=== PATIENT | male | born 1960 | race Caucasian/White ===

== ENCOUNTER 2020-02-27 17:47 | Inpatient (IN) | payer MEDICAID ==
[~2020-02-27] VITALS: Ht 180.3 cm; Wt 92.5 kg
--- NOTE | 2020-02-27 17:57 | NUR ---
MICHELLE FROM [facility] TO ER BED 5. AAOX4. BREATHING EVEN AND UNLABORED. BROUGHT IN FOR MID STERNAL CHEST PAIN X 1 HR EXTERMINATOR HELPER NON RADIATING CONSTANT 4/10 SHARP IN NATURE. PT ALSO REPORTS THAT HE IS HAVING DIFFICULTY BREATHING BUT HE IS TALKING IN FULL SENTENCES. PT IS ON MONITOR. EKG BEING DONE AT BEDSIDE. WAS AT THE BEDSIDE FOR EVAL.
[2020-02-27] MEDS ORDERED: NITROGLYCERIN 0.4 MG/TAB BOTTLE SL ONE (18:00)
[2020-02-27] MEDS ORDERED: ASPIRIN 325 MG TABLET PO ONE (18:00)
--- NOTE | 2020-02-27 18:01 | NUR ---
PER EMS REPORT. PT WAS GIVEN X 3 SPRAYS OF NITRO AND ASA 325MG PO X 1. PT HAD PAIN OF 6/10 AND NOW 4/10
--- NOTE | 2020-02-27 18:02 | NUR ---
ORDERED TO HOLD ON THE ASA AND NITRO. PT ALREADY RECEIVED THEM ENROUTE TO ER
[2020-02-27] MEDS ORDERED: IV NS 0.9% 1,000 ML IV ONE (18:30)
[2020-02-27] MEDS ORDERED: SERT50TA12 PO (19:03)
[2020-02-27] MEDS ORDERED: DOLU1TAB PO (19:03)
[2020-02-27] MEDS ORDERED: TOPI25TA49 PO (19:03)
[2020-02-27] MEDS ORDERED: ASPI-1169 PO (19:03)
[2020-02-27] MEDS ORDERED: LOSA25TA27 PO (19:03)
[2020-02-27] MEDS ORDERED: CLOP75TA15 PO (19:03)
[2020-02-27] MEDS ORDERED: ISOS10TA8 PO (19:03)
[2020-02-27] MEDS ORDERED: MIRT-73 PO (19:03)
[2020-02-27] MEDS ORDERED: ATOR20TA PO (19:03)
[2020-02-27] MEDS ORDERED: METO25TA20 PO (19:03)
[2020-02-27] MEDS ORDERED: LEVE500T20 PO (19:03)
[2020-02-27] MEDS ORDERED: QUET300T2 PO (19:03)
--- NOTE | 2020-02-27 19:20 | NUR ---
COVID SWAB COLLECTED, SENT TO LAB. (SEND OUT)
--- NOTE | 2020-02-27 19:36 | NUR ---
RACHELID SWABBED, SENT TO LAB.
[2020-02-27 19:44] LABS: CALCIUM, SERUM 8.6 mg/dL (8.5-10.1); CARBON DIOXIDE 22 mmol/L (21-32); CHLORIDE 103 mmol/L (98-107); CREATININE 0.8 mg/dL (0.6-1.3); GLUCOSE 157 mg/dL (74-106); SODIUM SERUM 140 mmol/L (136-145); UREA NITROGEN, BLOOD 13 mg/dL (7-18)
[2020-02-27 19:55] LABS: POTASSIUM 2.8 mmol/L (3.5-5.1)
--- NOTE | 2020-02-27 19:56 | NUR ---
REPORT GIVEN TO TAPAN WALDEN FOR MARIO.
[2020-02-27] MEDS ORDERED: POTASSIUM CHLORIDE 20 MEQ TAB.PRT.SR PO ONE ×2 (20:00→20:09)
--- NOTE | 2020-02-27 20:02 | NUR ---
[facility] CALLED HIGH SCHOOL TEACHER PAGED.
[2020-02-27 20:27] LABS: BASOPHILS % (AUTO) 0.5 % (0.0-2.0); EOSINOPHILS % (AUTO) 1.6 % (0.0-6.0); HEMATOCRIT 45 % (39-51); HEMOGLOBIN 14.5 g/dL (13.5-17.5); LYMPHOCYTES # (AUTO) 1.9 /CMM (0.8-4.8); LYMPHOCYTES % (AUTO) 30.9 % (20.0-44.0); MEAN CORPUSCULAR HGB CONC 33 g/dl (31.0-36.0); MEAN CORPUSCULAR VOLUME 94 fL (80-96); MONOCYTES # (AUTO) 0.4 /CMM (0.1-1.30); MONOCYTES % (AUTO) 6.6 % (2.0-12.0); NEUTROPHILS # (AUTO) 3.7 /CMM (1.8-8.9); NEUTROPHILS % (AUTO) 60.4 % (43.0-81.0); PLATELET COUNT (AUTO) 200 /CMM (150-450); RED BLOOD CELL COUNT(AUTO) 4.74 MIL/uL (4.5-6.0); WHITE BLOOD COUNT (AUTO) 6.1 K/uL (4.3-11.0)
[2020-02-27 20:35] VITALS: BP 122/73
--- NOTE | 2020-02-27 20:35 | NUR ---
trial attorneyfurnace converter note Received patient via gurney. Patient ambulated to bed. a/ox4. Tolerating room air. Respirations are even and unlabored. No s/s sob noted. States he has chest pain 4/10 butter than ER, but is tolerable. External tele monitor reads sinus rhythm hr 86. In no apparent distress. Iv access in left hand #20 patent and saline locked. Initial physical assessment completed, skin assessment completed, photos taken and placed in chart. Can obtained vitals signs and belongings list. Bed is low and locked, hob elevated in semi fowlers, side rails up x2. Call light within reach. Will continue to monitor.
--- NOTE | 2020-02-27 20:42 | NUR ---
PT TO UNIT ON [facility] WITH EMT AND RN AT BEDSIDE W/ ACLS PROTOCOL. NAD NOTED DURING TRANSPORT. PT AMBULATED FROM GURNEY TO BED ON STEADY GAIT W/ ASSIST
[2020-02-27] MEDS ORDERED: ACETAMINOPHEN 325 MG TABLET PO PRN (21:30)
[2020-02-27] MEDS ORDERED: ONDANSETRON HCL/PF 4 MG/2 ML VIAL IVP PRN (21:30)
[2020-02-27] MEDS ORDERED: HYDROCODONE/APAP 5/325MG TABLET PO PRN (21:30)
[2020-02-27] MEDS ORDERED: MORPHINE SULFATE INJ 2 MG/ML DISP.SYRIN IV PRN (21:30)
[2020-02-27] MEDS: ATORVASTATIN 10 MG TABLET PO SCH (21:56)
[2020-02-27] MEDS: CLOPIDOGREL BISULFATE 75 MG TABLET PO SCH (21:57)
[2020-02-27] MEDS: MIRTAZAPINE SOLUTAB 15 MG/UDTABLET TAB.RAPDIS PO SCH (21:57)
[2020-02-27 22:11] LABS: ALBUMIN 3.2 g/dL (3.4-5.0); BILIRUBIN,DIRECT 0.1 mg/dL (0.0-0.2); BILIRUBIN,TOTAL 0.4 mg/dL (0.2-1.0); MAGNESIUM 1.9 mg/dL (1.8-2.4)
[2020-02-27] MEDS: QUETIAPINE FUMARATE 100 MG TABLET PO SCH (23:31)
[2020-02-28] VITALS: BP 127/78
[2020-02-28 04:00] VITALS: BP 124/73
[2020-02-28 06:43] LABS: ALBUMIN 3.1 g/dL (3.4-5.0); BILIRUBIN,TOTAL 0.7 mg/dL (0.2-1.0); CALCIUM, SERUM 8.4 mg/dL (8.5-10.1); CREATININE 0.7 mg/dL (0.6-1.3); MAGNESIUM 1.9 mg/dL (1.8-2.4); PHOSPHORUS 3.8 mg/dL (2.5-4.9); POTASSIUM 3.4 mmol/L (3.5-5.1); TOTAL PROTEIN, SERUM 5.9 g/dL (6.4-8.2)
[2020-02-28 06:56] LABS: BASOPHILS # (AUTO) 0.1 /CMM (0.0-0.2); BASOPHILS % (AUTO) 1.2 % (0.0-2.0); EOSINOPHILS % (AUTO) 4.3 % (0.0-6.0); HEMATOCRIT 44 % (39-51); HEMOGLOBIN 14.4 g/dL (13.5-17.5); LYMPHOCYTES # (AUTO) 2.4 /CMM (0.8-4.8); LYMPHOCYTES % (AUTO) 45.8 % (20.0-44.0); MEAN CORPUSCULAR HGB CONC 33 g/dl (31.0-36.0); MEAN CORPUSCULAR VOLUME 94 fL (80-96); MONOCYTES # (AUTO) 0.5 /CMM (0.1-1.30); NEUTROPHILS # (AUTO) 2.1 /CMM (1.8-8.9); NEUTROPHILS % (AUTO) 39.7 % (43.0-81.0); PLATELET COUNT (AUTO) 180 /CMM (150-450); WHITE BLOOD COUNT (AUTO) 5.2 K/uL (4.3-11.0)
[2020-02-28 06:58] LABS: THYROID STIMULATING HORMONE 0.457 uIU/mL (0.358-3.74)
--- NOTE | 2020-02-28 07:03 | NUR ---
TRIM TECHNICIAN OPENING NOTES RECEIVED PT AWAKE IN BED AT THIS TIME. AOX4. NO SOB NOTED, NO S/S OF ANY ACUTE DISTRESS NOTED. NO C/O PAIN AT THIS TIME.PT ABLE TO MAKE NEEDS KNOWN. PT ON EXTERNAL TELE APPLICATION SYSTEMS ENGINEER READING SR IN THE 90S RESPIRATIONS ARE EVEN AND UNLABORED WITH EQUAL RISE AND FALL IN CHEST. IV ACCESS NOTED IN LEFT HAND G#20, INTACT, PATENT AND FLUSHING WELL. SAFETY PRECAUTION IN PLACE AND MAINTAINED AT ALL TIMES. BED IN LOWEST LOCKED POSITION, HOB ELEVATED, SIDE RAILS UP X 2, CALL LIGHT WITHIN REACH. WILL CONTINUE TO MONITOR
--- NOTE | 2020-02-28 07:10 | NUR ---
lucerne farmer closing note patient resting in bed. a/ox4. Tolerating room air. no resp distress. no c/o pain. External tele monitor reads sinus rhythm. no distress. Iv access maintained in left hand #20 patent and saline locked. Bed remains low and locked, hob elevated in semi fowlers, side rails up x2. Call light within reach. Will endorse to next shift.
[2020-02-28] MEDS: PANTOPRAZOLE 40 MG TABLET.DR PO SCH (08:18)
[2020-02-28] MEDS: ASPIRIN 81 MG TAB.CHEW PO SCH (08:52)
[2020-02-28] MEDS: LEVETIRACETAM (250 MG) 250 MG TABLET PO SCH ×2 (08:52→22:51)
[2020-02-28] MEDS: TOPIRAMATE 25 MG TABLET PO SCH (08:52)
[2020-02-28] MEDS: SERTRALINE HCL 50 MG TABLET PO SCH (08:52)
[2020-02-28] MEDS: LOSARTAN POTASSIUM 25 MG TABLET PO SCH (08:52)
[2020-02-28] MEDS: ISOSORBIDE MONONITRATE 20 MG TABLET PO SCH ×2 (08:53→16:33)
[2020-02-28] MEDS ORDERED: FUROSEMIDE 20 MG/2 ML VIAL IV SCH (09:00)
[2020-02-28] MEDS ORDERED: METOPROLOL TARTRATE 25 MG TABLET PO SCH ×2 (09:00)
[2020-02-28] MEDS ORDERED: POTASSIUM CHLORIDE 20 MEQ TAB.PRT.SR PO ONE (09:30)
[2020-02-28] MEDS ORDERED: METOPROLOL TARTRATE 25 MG TABLET PO ONE (09:30)
[2020-02-28 10:00] VITALS: BP 121/81
[2020-02-28 10:47] LABS: FERRITIN 24 ng/mL (8-388)
[2020-02-28 10:55] LABS: C-REACTIVE PROTEIN < 0.2 mg/dL (0.0-0.9)
--- NOTE | 2020-02-28 16:00 | NUR ---
PT PCR CAME BACK NEGATIVE. DOCTOR GOLDIE MADE AWARE. ORDERS RECEIVED TO TRANSFER PT TO [facility]. ORDERS CARRIED OUT. WILL CONTINUE TO WITH PLAN OF CARE
--- NOTE | 2020-02-28 17:10 | NUR ---
PT TRANSPORTED TO [facility] ROOM 323-2 AT THIS TIME ON A WHEEL CHAIR ACCOMPANIED BY NURSE AND ROSALIE ADAME. BEDSIDE REPORT GIVEN TO TAPAN CONTRERAS.
--- NOTE | 2020-02-28 17:20 | NUR ---
RN NOTES PT TRANSPORTED TO [facility] GAVE REPORT WEST ROOM 323-2 AT THIS TIME ON A WHEEL CHAIR ACCOMPANIED BY NURSE AND ROSALIE ADAME.
--- NOTE | 2020-02-28 19:30 | NUR ---
MS/TELE/RN RECEIVED PATIENT IN BED SLEEPING, APPEAR COMFORTABLE, NO SIGNS OF DISTRESS NOTED, CALL LIGHT IN REACH. WILL MONITOR.
--- NOTE | 2020-02-28 19:49 | NUR ---
RN CLOSING NOTES RECEIVED PT AWAKE IN BED AT THIS TIME. AOX4. NO SOB NOTED, NO S/S OF ANY ACUTE DISTRESS NOTED. NO C/O PAIN AT THIS TIME.PT ABLE TO MAKE NEEDS KNOWN. 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 IV ACCESS NOTED IN LEFT HAND G#20, INTACT, PATENT AND FLUSHING WELL. SAFETY PRECAUTION IN PLACE AND MAINTAINED AT ALL TIMES. BED IN LOWEST LOCKED POSITION, HOB ELEVATED, SIDE RAILS UP X 2, CALL LIGHT WITHIN REACH. WILL ENDORSE TO NIGHT NURSE
[2020-02-28 20:00] VITALS: BP 120/75
[2020-02-28] MEDS: ATORVASTATIN 10 MG TABLET PO SCH (22:51)
[2020-02-28] MEDS: CLOPIDOGREL BISULFATE 75 MG TABLET PO SCH (22:51)
[2020-02-28] MEDS: MIRTAZAPINE SOLUTAB 15 MG/UDTABLET TAB.RAPDIS PO SCH (22:52)
[2020-02-28] MEDS: METOPROLOL TARTRATE 50 MG TABLET PO SCH (22:52)
[2020-02-28] MEDS: QUETIAPINE FUMARATE 100 MG TABLET PO SCH (22:52)
--- NOTE | 2020-02-28 22:58 | NUR ---
MS/TELE/RN PATIENT IS AWAKE, ALERT AND ORIENTED, COMFORTABLE, NO C/O PAIN, NO DISTRESS NOTED. ALL DUE MEDS WERE GIVEN, TOLERATED. WILL CONTINUE TO MONITOR.
[2020-02-29] VITALS (8 sets, daily range): BP systolic 98–127; BP diastolic 53–88
--- NOTE | 2020-02-29 01:51 | NUR ---
MS/TELE/RN PATIENT IS SLEEPING AT THIS TIME, APPEAR COMFORTABLE, NO SIGNS OF DISTRESS NOTED, CALL LIGHT IN REACH. WILL CONTINUE TO MONITOR.
--- NOTE | 2020-02-29 06:14 | NUR ---
MS/TELE/RN PATIENT IS STILL SLEEPING AT THIS TIME, APPEAR COMFORTABLE, NO SIGNS OF DISTRESS NOTED, CALL LIGHT IN REACH, ALL NEEDS ATTENDED AT THIS TIME, WILL CONTINUE TO MONITOR.
[2020-02-29 06:52] LABS: CALCIUM, SERUM 8.6 mg/dL (8.5-10.1); CREATININE 0.6 mg/dL (0.6-1.3); POTASSIUM 3.5 mmol/L (3.5-5.1)
[2020-02-29] MEDS: PANTOPRAZOLE 40 MG TABLET.DR PO SCH (07:36)
--- NOTE | 2020-02-29 07:58 | NUR ---
TELE/RN OPENING NOTES RECEIVED PATIENT IS ON BED SLEEPING BUT EASILY AROUSABLE BY NAME AND LIGHT TOUCH. NO COMPLAINED OF PAIN AT THIS TIME. PATIENT IN NO APPARENT RESPIRATORY DISTRESS NOTED. PATIENT IS ON TELE MONITOR READING SR 62 BPM. WILL CONTINUE TO MONITOR.
[2020-02-29] MEDS: SERTRALINE HCL 50 MG TABLET PO SCH (08:40)
[2020-02-29] MEDS: LOSARTAN POTASSIUM 25 MG TABLET PO SCH (08:40)
[2020-02-29] MEDS: METOPROLOL TARTRATE 50 MG TABLET PO SCH ×2 (08:40→21:00)
[2020-02-29] MEDS: ASPIRIN 81 MG TAB.CHEW PO SCH (08:40)
[2020-02-29] MEDS: TOPIRAMATE 25 MG TABLET PO SCH (08:41)
[2020-02-29] MEDS: LEVETIRACETAM (250 MG) 250 MG TABLET PO SCH ×2 (08:41→21:16)
--- NOTE | 2020-02-29 10:08 | NUR ---
TELE/RN NOTES PATIENT IS AMBULATORY, NO NEED FOR CHEMICAL PROPHYLAXIS PER RACHELL AMEZCUA DNP.
[2020-02-29] MEDS: ISOSORBIDE MONONITRATE 20 MG TABLET PO SCH ×2 (10:24→16:29)
--- NOTE | 2020-02-29 18:45 | NUR ---
TELE/RN CLOSING NOTES PATIENT IS ON BED. AWAKE ALERT AND ORIENTED X4. PATIENT IN NO APPARENT RESPIRATORY DISTRESS NOTED. NO COMPLAINED OF PAIN NOTED. TELE MONITOR IN PLACED READING SR 86 BPM. IV ACCESS AT LEFT HAND # 20G PATENT AND INTACT. SEEN AND EXAMINED BY MD WITH ORDERS MADE AND CARRIED OUT. ALL DUE MEDICATION WAS GIVEN. SAFETY PRECAUTIONS WAS IN PLACED. BED IN LOWEST POSITION AND LOCKED. SIDERAILS UP X 2. CALL LIGHT WITH IN REACH. SITTER IS ON BEDSIDE. WILL ENDORSED TO PHYSICIAN SCIENTIST FOR MARIO.
[2020-02-29] MEDS ORDERED: NITROGLYCERIN 0.4 MG/TAB BOTTLE SL PRN (19:00)
--- NOTE | 2020-02-29 19:20 | NUR ---
INSTRUCTIONAL SUPPORT ASSISTANT OPENING NOTES: RECEIVED PATIENT IN BED, AWAKE, A/O X4. NO S/S OF DISTRESS NOTED. NO COMPLAIN OF PAIN. CALL LIGHT WITHIN REACH. BED IN LOWEST AND LOCKED POSITION.
--- NOTE | 2020-02-29 19:31 | NUR ---
PATIENT WAS PICKED UP BY WHEELCHAIR FOR CT ANGIOGRAM OF THE HEART.
[2020-02-29] MEDS ORDERED: IOHEXOL-350 100 ML VIAL IV ONE (19:46)
[2020-02-29] MEDS ORDERED: METOPROLOL TARTRATE INJ 5 MG/5 ML AMPUL ONE (19:46)
[2020-02-29] MEDS ORDERED: IV NS 0.9% 250 ML IV ONE (19:46)
[2020-02-29] MEDS: METOPROLOL TARTRATE INJ 5 MG/5 ML AMPUL IVP PRN ×2 (19:47→19:52)
--- NOTE | 2020-02-29 20:13 | NUR ---
PATIENT CAME BACK FROM CT ANGIOGRAM BY WHEELCHAIR.
[2020-02-29] MEDS: QUETIAPINE FUMARATE 100 MG TABLET PO SCH (21:15)
[2020-02-29] MEDS: MIRTAZAPINE SOLUTAB 15 MG/UDTABLET TAB.RAPDIS PO SCH (21:16)
[2020-02-29] MEDS: CLOPIDOGREL BISULFATE 75 MG TABLET PO SCH (21:16)
[2020-02-29] MEDS: ATORVASTATIN 10 MG TABLET PO SCH (21:16)
[2020-03-01 03:41] VITALS: BP 125/89
[2020-03-01 03:53] VITALS: BP 98/53
--- NOTE | 2020-03-01 05:37 | NUR ---
FITNESS CENTRE MANAGER CLOSING NOTES: PATIENT IN BED, ASLEEP,EASILY AROUSABLE. NO S/S OF DISTRESS NOTED. CALL LIGHT WITHIN REACH. BED BED IN LOWEST AND LOCKED POSITION. BED ALARM ON. RESTED THROUGHOUT THE NIGHT.LEFT AC G20 INSERTED BY RN AT CT ANGIOGRAM LAST NIGHT, INTACT AND PATENT.
--- NOTE | 2020-03-01 07:15 | NUR ---
PATIENT IN BED, ASLEEP,EASILY AROUSABLE. NO S/S OF DISTRESS NOTED. CALL LIGHT WITHIN REACH. BED BED IN LOWEST AND LOCKED POSITION. BED ALARM ON.LEFT AC G20 INTACT AND PATENT. FLUSHED. ALL HOSPITAL POLICY SAFETY PRECAUTIONS IMPLEMENTED.
[2020-03-01 08:00] VITALS: BP 128/59
[2020-03-01] MEDS: LOSARTAN POTASSIUM 25 MG TABLET PO SCH (09:52)
[2020-03-01 09:53] VITALS: BP 128/74
[2020-03-01] MEDS: ASPIRIN 81 MG TAB.CHEW PO SCH (09:53)
[2020-03-01] MEDS: SERTRALINE HCL 50 MG TABLET PO SCH (09:53)
[2020-03-01] MEDS: LEVETIRACETAM (250 MG) 250 MG TABLET PO SCH (09:53)
[2020-03-01] MEDS: METOPROLOL TARTRATE 50 MG TABLET PO SCH (09:53)
[2020-03-01] MEDS: ISOSORBIDE MONONITRATE 20 MG TABLET PO SCH (09:53)
[2020-03-01] MEDS: TOPIRAMATE 25 MG TABLET PO SCH (09:54)
[2020-03-01] MEDS: PANTOPRAZOLE 40 MG TABLET.DR PO SCH (09:54)
--- NOTE | 2020-03-01 13:05 | NUR ---
PT REFUSES TO ALLOW TO TAKE PHOTOS OF L PINKY TOE. PT STATES "MY PINKY TOE IS FINE AND THERE IS NO NEED FOR IT BECAUSE IT WILL NOT HARM ME". PT L PINK NO SIGNS OF REDNESS OR BLEEDING OR INFECTION.
== END 2020-03-01 13:20 | disposition home or self-care (01) | DRG 198 ==
LOC: ER 17:49 → TELE2 18:56 → TELE 02-28 17:12 → MED 03-01 11:21
PROVIDERS: ADMIT Internal Medicine; ATTEND Nurse Practitioner Acute Care
DX: I25.10 Atherosclerotic heart disease of native coronary artery without angina pectoris (principal); E78.5 Hyperlipidemia, unspecified; G40.909 Epilepsy, unspecified, not intractable, without status epilepticus; E87.6 Hypokalemia; I10 Essential (primary) hypertension; Z59.0 Homelessness; J45.909 Unspecified asthma, uncomplicated; F17.210 Nicotine dependence, cigarettes, uncomplicated; E66.9 Obesity, unspecified; Z79.82 Long term (current) use of aspirin; Z95.5 Presence of coronary angioplasty implant and graft; Z68.28 Body mass index [BMI] 28.0-28.9, adult; R73.9 Hyperglycemia, unspecified
CPT/HCPCS: 36415; 71045-TC; 75574; 80048-TC; 80053-TC; 80061-TC; 80076-TC; 82728-TC; 83615-TC; 83735-TC; 83880; 84100-TC; 84443-TC; 84484-TC; 85025-TC; 85378-TC; 86140-TC; 87081-TC; 93307-TC; G0378; J1940; J3490; J7030; J7050; Q9967; U0003

== ENCOUNTER 2022-03-13 15:55 | Emergency (ER) | payer MEDICAID ==
[~2022-03-13] VITALS: Ht 172.7 cm; Wt 84.8 kg
[2022-03-13 15:55] VITALS: BP 145/77
[~2022-03-13 15:55] MED LIST: ASPI-1169 PO; ATOR20TA PO; CLOP75TA15 PO; DOLU1TAB PO; ISOS10TA8 PO; LEVE500T20 PO; LOSA25TA27 PO; METO25TA20 PO; MIRT-73 PO; QUET300T2 PO; SERT50TA12 PO; TOPI25TA49 PO
--- NOTE | 2022-03-13 20:01 | NUR ---
RAD AT BEDSIDE
[2022-03-13] MEDS ORDERED: CLIN300C12 PO (20:39)
== END 2022-03-13 20:47 | disposition home or self-care (01) ==
LOC: ER 15:56
DX: L02.31 Cutaneous abscess of buttock (principal); M25.512 Pain in left shoulder; I10 Essential (primary) hypertension; I25.2 Old myocardial infarction; E78.5 Hyperlipidemia, unspecified; J45.909 Unspecified asthma, uncomplicated; F17.200 Nicotine dependence, unspecified, uncomplicated; Z88.2 Allergy status to sulfonamides; Z60.2 Problems related to living alone; Z79.899 Other long term (current) drug therapy
CPT/HCPCS: 73030-TC